=== PATIENT | male | born 1985 | race Caucasian/White ===

== ENCOUNTER 2020-07-06 00:18 | Emergency (ER) | payer OTHER ==
[~2020-07-06] VITALS: Ht 167.6 cm; Wt 68.0 kg
[2020-07-06 00:29] VITALS: Ht 167.6 cm; Wt 68.0 kg
[2020-07-06 01:46] VITALS: BP 128/82
== END 2020-07-06 01:47 | disposition other institution (70) ==
LOC: ED 00:18
DX: Z02.89 Encounter for other administrative examinations (principal)